=== PATIENT | female | born 1970 | race Two or more races ===

== ENCOUNTER 2025-04-26 00:06 | Emergency (ER) | payer OTHER | END 2025-04-26 00:57 | disposition home or self-care (01) | LOC: ER 00:14 | DX: S69.90XA Unspecified injury of unspecified wrist, hand and finger(s), initial encounter (principal); Z53.21 Procedure and treatment not carried out due to patient leaving prior to being seen by health care provider; X58.XXXA Exposure to other specified factors, initial encounter; Y93.89 Activity, other specified; Y92.89 Other specified places as the place of occurrence of the external cause; Y99.8 Other external cause status ==